=== PATIENT | female | born 1945 | race African-American/Black ===

== ENCOUNTER 2019-01-27 08:36 | Day surgery (SDC) | payer MEDICARE, MEDICAID ==
[~2019-01-27] VITALS: Ht 165.1 cm; Wt 78.0 kg
[2019-01-27] MEDS ORDERED: BALANCED SALT IRRIG SOLN COMB1 500ML OP ONE (09:30)
[2019-01-27] MEDS ORDERED: METF-414 PO (10:52)
[2019-01-27] MEDS ORDERED: HYDR25TA PO (10:52)
[2019-01-27] MEDS ORDERED: LIP40 PO (10:52)
[2019-01-27] MEDS ORDERED: BENA40TA66 PO (10:52)
[2019-01-27] MEDS ORDERED: ASPI-1393 PO (10:52)
[2019-01-27] MEDS ORDERED: LACTATED RINGERS 1,000 ML IV SCH (11:00)
[2019-01-27] MEDS ORDERED: TRYPAN BLUE 0.5 ML DISP.SYRIN IO ONE (12:22)
[2019-01-27] MEDS ORDERED: HYALURONATE SODIUM 14 MG/ML 0.85ML SYRINGE IO ONE (12:25)
== END 2019-01-27 13:45 | disposition home or self-care (01) ==
LOC: OR 08:36
PROVIDERS: ATTEND Ophthalmology
DX: E11.36 Type 2 diabetes mellitus with diabetic cataract (principal); H25.22 Age-related cataract, morgagnian type, left eye; I10 Essential (primary) hypertension; E78.00 Pure hypercholesterolemia, unspecified; M19.90 Unspecified osteoarthritis, unspecified site; Z79.82 Long term (current) use of aspirin; Z79.84 Long term (current) use of oral hypoglycemic drugs; Z79.899 Other long term (current) drug therapy; Z88.8 Allergy status to other drugs, medicaments and biological substances; Z98.890 Other specified postprocedural states; Z98.891 History of uterine scar from previous surgery
CPT/HCPCS: 66982; 82962; J3490; Q9957; V2632

== ENCOUNTER 2022-05-01 06:53 | Day surgery (SDC) | payer MEDICARE, MEDICAID ==
[~2022-05-01] VITALS: Ht 165.1 cm; Wt 86.6 kg
[~2022-05-01 06:53] MED LIST: ASPI-1497 PO; BALANCED SALT IRRIG SOLN COMB1 500ML OP NR; BENA40TA66 PO; HYDR25TA PO; LIP40 PO; METF-414 PO
[2022-05-01] MEDS ORDERED: HYALURONATE SODIUM 10 MG/ML 0.55ML SYRINGE IO ONE (07:27)
[2022-05-01] MEDS ORDERED: CYCLOPENTOLATE HCL 1% OPHTH DROPS 2ML RIGHTEYE NR (07:40)
[2022-05-01] MEDS ORDERED: PHENYLEPHRINE HCL 10% OPHTH DROPS 5ML RIGHTEYE NR (07:40)
[2022-05-01] MEDS ORDERED: TROPICAMIDE 1% OPHTH DROPS 15ML RIGHTEYE NR (07:40)
[2022-05-01] MEDS ORDERED: SODIUM CHLORIDE 0.9% 1,000 ML IV SCH (08:00)
[2022-05-01] MEDS ORDERED: FENTANYL CITRATE/PF 50MCG/ML 2ML VIAL ONE (09:52)
[2022-05-01] MEDS ORDERED: MIDAZOLAM HCL 2 MG/2 ML VIAL ONE (09:53)
[2022-05-01] MEDS ORDERED: NEO/POLYMYX B SULF/DEXAMETH OPHTH OINT 3.5GM ONE (10:41)
[2022-05-01] MEDS ORDERED: BALANCED SALT IRRIG SOLN 15ML ONE (10:41)
[2022-05-01] MEDS ORDERED: CIPROFLOXACIN 0.3% OPHTH SOLN 2.5ML ONE (10:41)
[2022-05-01] MEDS ORDERED: PREDNISOLONE ACETATE 1% OPHTH DROPS 5ML ONE (10:41)
[2022-05-01] MEDS ORDERED: CYCLOPENTOLATE HCL 1% OPHTH DROPS 2ML ONE (10:41)
[2022-05-01] MEDS ORDERED: TROPICAMIDE 1% OPHTH DROPS 15ML ONE (10:41)
[2022-05-01] MEDS ORDERED: TETRACAINE 0.5% OPHTH DROPS 4ML ONE (10:41)
[2022-05-01] MEDS ORDERED: LIDOCAINE HCL/PF 2% 20 MG/ML 10ML VIAL ONE (10:41)
[2022-05-01] MEDS ORDERED: PHENYLEPHRINE HCL 10% OPHTH DROPS 5ML ONE (10:41)
[2022-05-01] MEDS ORDERED: HYDRALAZINE 20MG/ML VIAL ONE (10:45)
== END 2022-05-01 11:45 | disposition home or self-care (01) ==
LOC: OR 06:53
PROVIDERS: ATTEND Ophthalmology
DX: E11.36 Type 2 diabetes mellitus with diabetic cataract (principal); H25.89 Other age-related cataract; I10 Essential (primary) hypertension; E78.00 Pure hypercholesterolemia, unspecified; M19.90 Unspecified osteoarthritis, unspecified site; F41.9 Anxiety disorder, unspecified; F32.9 Major depressive disorder, single episode, unspecified; Z79.82 Long term (current) use of aspirin; Z79.84 Long term (current) use of oral hypoglycemic drugs; Z79.899 Other long term (current) drug therapy; Z98.890 Other specified postprocedural states; Z88.8 Allergy status to other drugs, medicaments and biological substances; Z20.822 Contact with and (suspected) exposure to COVID-19
CPT/HCPCS: 66984; 82962; 87426; A4217; C9803; J0360; J2250; J3010; J3490; V2632; Z7610